=== PATIENT | female | born 1995 | race Caucasian/White ===

== ENCOUNTER 2021-03-16 01:37 | Inpatient (IN) ==
[2021-03-16 03:30] LABS: Hematocrit 31 % (35-47); Hemoglobin 10.9 g/dL (12.0-16.0); Mean Corpuscular HGB Conc 35 g/dL (31-36); Mean Corpuscular Hemoglobin 30 pg (27-31); Mean Corpuscular Volume 86 fL (80-97); Mean Platelet Volume 9.9 fL (7.4-10.4); Platelet Count 185 10^3/uL (150-450); Red Blood Count 3.64 10^6 /uL (3.70-4.87); Red Cell Distribution Width 15 % (10-15); White Blood Count 9.7 10^3/uL (3.5-10.8)
[2021-03-16 04:06] LABS: Urine Benzodiazepine Screen None Detected (None Detect); Urine Cannabinoids Screen None Detected (None Detect); Urine Opiates Screen None Detected (None Detect)
[2021-03-16] MEDS ORDERED: Morphine 10 MG/ML VIAL (1 ml) IV ONE (04:30)
[2021-03-16] MEDS ORDERED: Promethazine INJ(RESTRICTED) 25 MG/ML 1 ml VIAL IV ONE (05:00)
[2021-03-16] MEDS ORDERED: Lactated Ringers 1000 ml BAG 1,000 ML IV ONE ×2 (05:36→16:57)
[2021-03-16] MEDS ORDERED: Buffered Lidocaine 1% SYRIN 1 ml INTRADERM ONE (05:36)
[2021-03-16] MEDS ORDERED: Lactated Ringers 1000 ml BAG 1,000 ML IV SCH ×3 (06:00→23:00)
[2021-03-16 09:57] LABS: Urine Appearance Clear; Urine Bilirubin Negative (Negative); Urine Blood Negative (Negative); Urine Color Straw; Urine Glucose Negative (Negative); Urine Ketones Negative (Negative); Urine Nitrite Negative (Negative); Urine Protein Negative (Negative); Urine Specific Gravity 1.006 (1.002-1.030); Urine Urobilinogen Negative (Negative)
[2021-03-16 10:08] LABS: Albumin 3.5 g/dL (3.2-5.2); Albumin/Globulin Ratio 1.2 (1-3); Calcium 9.8 mg/dL (8.6-10.3); EGFR African American 88.6 (>60); EGFR Non-African American 73.2 (>60); Potassium 3.8 mmol/L (3.5-5.0); Total Bilirubin 0.3 mg/dL (0.2-1.0); Total Protein 6.5 g/dL (6.4-8.9); Uric Acid 5.7 mg/dL (2.3-6.6)
[2021-03-16] MEDS ORDERED: Calcium Carb (TUMS) 500 mg CHEW TAB PO PRN (10:58)
[2021-03-16] MEDS ORDERED: Oxytocin in LR 20 UNITS/1,000 ML BAG IVPB SCH ×2 (11:00→23:00)
[2021-03-16] MEDS ORDERED: Promethazine INJ(RESTRICTED) 25 MG/ML 1 ml VIAL IV PRN (13:54)
[2021-03-16] MEDS ORDERED: Morphine 10 MG/ML VIAL (1 ml) IV PRN (13:54)
[2021-03-16] MEDS ORDERED: OBEPIDURAL 250 ML EPIDURAL ONE (16:15)
[2021-03-16] MEDS ORDERED: EPHEDrine (Pressors) 50 MG/ML VIAL IV PUSH PRN ×2 (16:57)
[2021-03-16] MEDS ORDERED: Phenylephrine 40 mcg/mL 10mL (400mcg) SYRINGE IV PUSH PRN ×2 (16:57)
[2021-03-16] MEDS ORDERED: Sodium Citrate/Citric Acid LIQ 15 ML UDC PO PRN (16:57)
[2021-03-16] MEDS ORDERED: OBEPIDURAL 250 ML EPIDURAL SCH (17:00)
[2021-03-16 17:45] LABS: Urine Appearance Clear; Urine Bilirubin Negative (Negative); Urine Blood Negative (Negative); Urine Color Straw; Urine Glucose Negative (Negative); Urine Ketones Negative (Negative); Urine Nitrite Negative (Negative); Urine Protein Negative (Negative); Urine Specific Gravity 1.005 (1.002-1.030); Urine Urobilinogen Negative (Negative)
[2021-03-16 18:36] LABS: Urine Benzodiazepine Screen None Detected (None Detect); Urine Cannabinoids Screen None Detected (None Detect); Urine Opiates Screen Presumptive Positive (None Detect)
[2021-03-16] MEDS ORDERED: Glycerin ADULT 2.4 gm SUPP PR PRN (22:44)
[2021-03-16] MEDS ORDERED: Witch Hazel PAD JAR TOPICAL PRN (22:44)
[2021-03-16] MEDS ORDERED: Dibucaine 1% OINT 28.35 GM TUBE PR PRN (22:44)
[2021-03-16] MEDS ORDERED: Dibucaine 1% OINT 28.35 GM TUBE ONE (22:46)
[2021-03-16] MEDS ORDERED: Witch Hazel PAD JAR ONE (22:46)
[2021-03-17] MEDS ORDERED: Lidocaine 1% VIAL 10 MG/ML VIAL ONE (05:38)
[2021-03-17 06:13] LABS: Hematocrit 23 % (35-47); Hemoglobin 7.6 g/dL (12.0-16.0); Mean Corpuscular HGB Conc 34 g/dL (31-36); Mean Corpuscular Hemoglobin 30 pg (27-31); Mean Corpuscular Volume 87 fL (80-97); Platelet Count 124 10^3/uL (150-450); Red Blood Count 2.57 10^6 /uL (3.70-4.87); Red Cell Distribution Width 15 % (10-15); White Blood Count 17.3 10^3/uL (3.5-10.8)
[2021-03-17 06:17] LABS: ABS Lymphocytes 1.4 10^3/ul (1.0-4.8); ABS Monocytes 1.6 10^3/ul (0-0.8); ABS Neutrophils 14.3 10^3/ul (1.5-7.7); Lymphocyte % 8.3 %
[2021-03-18 08:02] VITALS: BP 124/87
== END 2021-03-18 11:30 | disposition home or self-care (01) | DRG 560 ==
LOC: MCHOBOUT 01:37 → MCHOB 02:22
PROVIDERS: ADMIT Obstetrics & Gynecology; ATTEND Obstetrics & Gynecology